=== PATIENT | female | born 1960 | race Caucasian/White ===

== ENCOUNTER 2018-09-10 00:53 | Outpatient (CLI) | payer OTHER, SELFPAY ==
--- NOTE | 2018-09-10 14:30 | DI.MAMMO_ITS ---
SYMPTOM/DIAGNOSIS: SCREENING, Z12.13 MAMMOGRAMS: Mammograms were interpreted according to the usual protocol including computer analysis with CAD system, tomosynthesis and C view imaging. Comparison is made with 2012 and 2015. The breasts are composed of heterogeneously dense fibroglandular tissue. Breast density, category C. A circumscribed nodule is again noted in the left breast in the upper outer quadrant which appears to have decreased in size. A previously noted area of nodularity in the lower inner quadrant of the left breast is no longer seen. There is a new area of spiculation posteriorly in the posterior left breast which is barely included on the MLO view and appears to be located medially. Spot compression views and ultrasound are requested for further evaluation. The right breast shows no suspicious calcifications or suspicious masses. IMPRESSION: Left breast, category 0. Right breast, category 1, negative. MQSA ASSESSMENT OF FINDINGS: Incomplete: Needs additional imaging evaluation. Category 0. Patient will receive a letter notifying them of these results. Bi-RADS category C. The breasts are heterogeneously dense, which may obscure small masses.
== END 2018-09-10 01:13 ==
DX: Z12.31 Encounter for screening mammogram for malignant neoplasm of breast (principal); R92.8 Other abnormal and inconclusive findings on diagnostic imaging of breast
CPT/HCPCS: 77063; 77067

== ENCOUNTER 2018-09-10 01:33 | Outpatient (CLI) | payer OTHER, SELFPAY ==
[2018-09-10 10:50] LABS: ALT 45 U/L (12-78); AST 22 U/L (15-37); Albumin 3.7 g/dL (3.4-5.0); Alkaline Phosphatase 96 U/L (46-116); Anion Gap 8.9 mmol/L (3-11); BUN 19 mg/dL (7-18); Bilirubin, Total 0.6 mg/dL (0.2-1.0); CO2 27.1 mmol/L (21.0-32.0); CREATININE 0.84 mg/dL (0.55-1.02); Calcium 9.4 mg/dL (8.5-10.1); Chloride 105 mmol/L (98-107); Cholesterol 225 mg/dL (50-200); Glucose 92 mg/dL (70-100); HDL Cholesterol 50 mg/dL (40-60); LDL CHOLESTEROL 154 mg/dL (<100); Potassium 4.2 mmol/L (3.5-5.1); Sodium 141 mmol/L (136-145); Total Protein 6.7 g/dL (6.4-8.2); Triglyceride 120 mg/dL (30-150)
== END 2018-09-10 01:53 ==
DX: Z00.00 Encounter for general adult medical examination without abnormal findings (principal); E03.9 Hypothyroidism, unspecified; F41.9 Anxiety disorder, unspecified; R53.83 Other fatigue; F32.9 Major depressive disorder, single episode, unspecified
CPT/HCPCS: 36415; 80053; 80061; 83721; 84443

== ENCOUNTER 2018-09-17 01:46 | Outpatient (CLI) | payer OTHER, SELFPAY ==
--- NOTE | 2018-09-17 10:10 | DI.COMBO_ITS ---
SYMPTOM/DIAGNOSIS: F/U MAMMO, NEW AREA OF SPICULATION LEFT BREAST ADDITIONAL VIEWS AND LEFT BREAST ULTRASOUND: Additional images are interpreted according to the usual protocol including tomosynthesis and 2D imaging. Additional views of the left breast again show a spiculated mass in the upper inner quadrant of the left breast. No associated microcalcifications are seen. This was not present on the prior examination. Left breast ultrasound was performed. A hypoechoic spiculated mass is seen at the 11 o'clock position of the left breast 7 cm. from the nipple. This appears to correspond to the mammographic abnormality. No other cystic or solid masses are seen sonographically. IMPRESSION: New, 8 mm. spiculated mass in the upper inner quadrant of the left breast highly suspicious for a malignancy. Biopsy is recommended. Category 5. MQSA ASSESSMENT OF FINDINGS: Highly suspicious of malignancy. Biopsy should be obtained. Category 5. Patient will receive a letter notifying them of these results. Bi-RADS category C. The breasts are heterogeneously dense, which may obscure small masses. The findings were discussed with the patient and the patient's primary care team on the date of the examination.
== END 2018-09-17 02:06 ==
DX: Z12.31 Encounter for screening mammogram for malignant neoplasm of breast (principal); R92.8 Other abnormal and inconclusive findings on diagnostic imaging of breast; N63.22 Unspecified lump in the left breast, upper inner quadrant
CPT/HCPCS: 76642; 77063; 77067

== ENCOUNTER 2018-10-02 12:44 | Outpatient (REF) | payer OTHER, SELFPAY ==
--- NOTE | 2018-10-02 09:15 | PAPFT_PTH ---
PATIENT: Loulou Ridley LOC: [facility] U#:[id number] AGE/SX: 58/F ROOM: RE10/02/[address]: Juju Sr APRN : 1960 BED: DIS: 10/02/2018 SPEC #: [id number] RECD: 10/03/18 13:09 STATUS: VIRI LYLES #: [id number] KEENAN: 10/02/18 09:[address]: Juju Sr DEPT: [facility] Cytology RECD BY: Yi Richardson Tissues: 1 - CX/ENDOCX FOR PAP SMEARS Procedures: PAP THIN PREP/UVM Screening HPV DNA PROBE Comments: [id number]
== END 2018-10-02 13:04 ==
LOC: LBN 12:44
DX: Z12.4 Encounter for screening for malignant neoplasm of cervix (principal); Z11.51 Encounter for screening for human papillomavirus (HPV)
CPT/HCPCS: 88142; 87624

== ENCOUNTER 2018-11-20 17:30 | Emergency (ER) | payer OTHER, SELFPAY ==
[2018-11-20 17:34] VITALS: BP 140/99; PULSE 112; RESP 16; TEMP 36.7; O2SAT 96
[2018-11-20 18:18] LABS: Abs Immature Grans 0.02 k/cumm (0.0-0.09); Absolute Basophil Count 0.01 k/cumm (0.0-0.2); Absolute Lymphocyte Count 1.66 k/cumm (1.2-3.4); Absolute Monocyte Count 0.86 k/cumm (0.11-0.7); Absolute Neutrophil Count 4.56 k/cumm (1.2-6.7); Basophils % 0.1; Eosinophils % 1.4; HCT 39.6 % (36.0-46.0); HGB 14.1 g/dL (12.0-15.5); Immature Grans % 0.3; Mean Corp. HGB Concentration 35.6 g/dL (32.0-36.0); Mean Corpuscular Hemoglobin 28.8 pg (27.0-33.0); Mean Platelet Volume 10.2 fL (8.0-11.0); Monocytes % 11.9; Neutrophils % 63.3; Platelet Count 202 x1000/uL (130-400); RBC 4.89 m/cumm (4.00-5.20); RBC Distribution Width 12.4 % (11.7-14.6); White Blood Cell Count 7.21 k/cumm (4.4-10.8)
[2018-11-20] MEDS: Normal Saline 1,000 ML 1000 ML IV ×2 (18:19→19:47)
[2018-11-20 18:29] LABS: ALT 60 U/L (12-78); AST 21 U/L (15-37); Albumin 3.4 g/dL (3.4-5.0); Alkaline Phosphatase 95 U/L (46-116); Anion Gap 8.8 mmol/L (3-11); BUN 12 mg/dL (7-18); Bilirubin, Total 0.4 mg/dL (0.2-1.0); CO2 27.2 mmol/L (21.0-32.0); CREATININE 0.87 mg/dL (0.55-1.02); Chloride 103 mmol/L (98-107); Glucose 107 mg/dL (70-100); Lipase 152 U/L (73-393); Potassium 3.2 mmol/L (3.5-5.1); Sodium 139 mmol/L (136-145)
[2018-11-20 18:33] LABS: Calcium 9.3 mg/dL (8.5-10.1)
[2018-11-20 19:45] VITALS: BP 132/82; PULSE 68; RESP 18; O2SAT 96
[2018-11-20] MEDS: POTASSIUM CHLORIDE 20 MEQ/100 ML BAG 100 MEQ IVPB (19:47)
--- NOTE | 2018-11-20 20:51 | ED.GENADUL_ITS ---
Discharge Plan Disposition Patient Disposition: HOME Condition: Good Discharge Details Chief Complaint: Nausea/Vomit/Diar Clinical Impression: C. difficile diarrhea Primary Care Provider: Juju Sr ED Provider: Wilder Lainez Home Meds and New Rx's Prescriptions: New vancomycin 125 mg capsule 125 mg PO QID 10 Days Qty: 40 RF: 0 metronidazole [Flagyl] 500 mg tablet 500 mg PO TID 10 Days Qty: 30 RF: 0 No Action levothyroxine 100 mcg tablet 100 mcg PO DAILY Qty: 90 RF: 3 estradiol [Yuvafem] 10 MCG tablet 10 mcg VG as directed Qty: 30 RF: 2 Hold Instructions: None clobetasol 0.05 % cream 1 applic TP QHS Qty: 45 RF: 1 ondansetron HCl [Zofran] 4 mg tablet 4 mg PO QID PRN (Reason: nausea and vomiting) Qty: 20 RF: 0 Discharge Instructions Instructions: Clostridium Difficile Infection (ED) Additional Instructions: You have C. difficile diarrhea. You have been given your first dose of vancomycin here. Please go to your pharmacy tomorrow morning and fill your vancomycin prescription. If they do not have any available please take the Flagyl instead. If you notice any worsening of your symptoms, or any new symptoms such as vomiting, worsening diarrhea, bloody diarrhea, fever, chills, shortness of breath, chest pain, numbness, nominal pain, weakness, or fainting , please return immediately to the emergency department for reevaluation. Please follow up with your primary care provider as soon as possible for reassessment and reevaluation. As always, it was a pleasure participating in your medical care today. Referrals: Juju Sr, [employer]LEMENT[employer]ER [Primary Care Provider] - Medical Decision Making This is a pleasant 58-year-old female who presents today for evaluation of nearly 2 weeks of watery diarrhea. Symptoms began after she had her breast surgery for breast cancer. She had a single dose of antibiotics at the time of surgery, but has not had any since then. Initially her diarrhea was dark for the first few days, but has since transitioned to a watery diffuse diarrhea. No recent foreign travel, no other sick contacts, no antibiotics since her surgery. He denies any abdominal pain or discomfort but does admit to mild crampiness. She has seen her primary care provider who did give her some Zofran for home use however this did not resolve her symptoms. She presents today for continued symptomatology. Exam demonstrates no evidence of abdominal tenderness or an acute surgical abdomen. Skin turgor is decreased, mucous membranes are slightly dry. We will rehydrate, formal laboratory work-up to evaluate for any significant electrolyte abnormality, and evaluate for any infectious etiology in the patient's stool. We did discuss imaging, patient would like to hold off for the time being after discussing the risks and benefits of CT scan. Patient's laboratory work-up has returned, she demonstrates no evidence of significant leukocytosis, bandemia, left shift, severe electrolyte abnormality, or renal dysfunction. Lipase is normal. Potassium is slightly low at 3.2. Patient has been rehydrated with 2 L of normal saline and given 20 mEq of IV c alcium. Patient's C. difficile has returned and it is positive. Feel this is most likely secondary to her antibiotic use for her surgery, followed by her inpatient admission. The C. difficile antigen is positive, but the toxin is negative, with no clinical signs of severe colitis and do not think the patient has fulminant C. difficile colitis. Do feel that her diarrhea is most likely secondary to the presence of C. difficile. We will get the first dose of vancomycin here, and 1 pill to go home with. We will give her a prescription for home use, as well as a prescription for Flagyl. We recommend that she attempts to get the oral vancomycin primarily, but if her pharmacies do not have any available that she can take the Flagyl instead as a second history alternative. Discussed the importance of close and prompt follow-up with her primary care provider, good handwashing techniques, and red flags which to return. Repeat exam continues to demonstrate a benign appearing abdomen on p alpation. Patient will be discharged home. I have extensively reviewed the treatment plan and discharge instructions with the patient and their family. I have addressed all patient concerns at this time. The patient and family was made aware of what symptoms to monitor for that would warrant a return to the emergency department. Discussed the plan with the patient and family, they demonstrate verbal understanding and agreement with our assessment and plan at this time. HPI General Date/Time Provider Initiated Documentation: 11/20/18 17:32 . HPI Narrative: This is a pleasant 58-year-old female with a past medical history of rest cancer with surgical excision on 4/29. Since then the patient has had continued diarrhea and loose stool that has been unremitting. She does admit to mild crampiness but denies any abdominal pain. Initially her stool was dark in color earlier this month over the last week and a half has transitioned into a diffusely water, yellow we stool with small amounts of food particles. She denies any hematochezia, melena, acholic stool. She denies any vomiting, abdominal pain, chest pain. He does admit to mild thyroid disease, but denies any other abnormalities or medical history. When she did have her breast cancer surgery she was given a single dose of antibiotics at time of surgery, but has not had any antibiotics since then. Patient denies any recent foreign travel, other sick contacts, or other abnormalities. He has not seen any GI specialist. She has no other complaints or modifying factors. Related Data Home Medications Medication Instructions Recorded Confirmed estradiol [Yuvafem] 10 mcg VG as directed #30 tab-cap 08/21/17 10/02/18 levothyroxine 100 mcg tablet 100 mcg PO DAILY #90 tab-cap 08/28/18 10/02/18 clobetasol 0.05 % topical cream 1 applic TP QHS #45 gm 10/02/18 10/18/18 ondansetron HCl 4 mg tablet 4 mg PO QID PRN #20 tab 11/14/18 metronidazole [Flagyl] 500 mg PO TID 10 Days #30 tab 11/20/18 vancomycin 125 mg PO QID 10 Days #40 cap 11/20/18 Previous Rx's Medication Instructions Recorded estradiol [Yuvafem] 10 mcg VG as directed #30 tab-cap 08/21/17 levothyroxine 100 mcg tablet 100 mcg PO DAILY #90 tab-cap 08/28/18 clobetasol 0.05 % topical cream 1 applic TP QHS #45 gm 10/02/18 ondansetron HCl 4 mg tablet 4 mg PO QID PRN #20 tab 11/14/18 metronidazole [Flagyl] 500 mg PO TID 10 Days #30 tab 11/20/18 vancomycin 125 mg PO QID 10 Days #40 cap 11/20/18 Allergies Allergy/AdvReac Type Severity Reaction Status Date / Time Animal Dander Allergy Unknown Uncoded 08/01/15 15:45 General Stated Complaint: Nausea/Vomit/Diar ANDREW: 3 Review of Systems Review of Systems All systems reviewed & are unremarkable except as noted in HPI and below PFSH Social History Smoking/Tobacco Use Status: Former Tobacco Use Quit Date: 07/09/84 Second Hand Exposure: No Alcohol Intake: current Alcohol Intake frequency: a few times a month Drug use: Never Caregiver/Support person: No Household members: spouse Housing: house Communication Needs: Corrective Lenses Do you need help understanding health information?: Never Pets and animals: No Sexually active: No Do you think of yourself as: straight/heterosexual Current gender identity: female What is your relationship status?: How often do you talk on the phone with friends or family?: three or more times per week How often do you get together with friends or relatives?: twice per week How often do you attend catholic or restorationism services?: decline to answer Do you belong to any clubs or organized social groups?: no Panel score (0-1 are the most socially isolated patients): 2 What type of physical activity do you participate in: none Charisma/Baptism: No preference Special charisma needs: No Do you feel safe at home: Yes Do you feel safe in your relationship?: Yes Exam Narrative Exam Narrative: 1.Const: Well-nourished, Well-developed, appearing stated age 2.Eyes: PERRL, no conjunctival injection, and symmetrical lids. 3.ENT: Atraumatic external nose and ears. Moist MM. Neck: Symmetric, trachea midline, No thyromegaly. 4.CVS: +S1/S2, No murmurs or gallops. Peripheral pulses 2+ and equal in all extremities. Brisk capillary refill in all extremities. 5.RESP: Unlabored respiratory effort. Clear to auscultation bilaterally. No wheezes rales or rhonchi 6.GI: Soft, Nontender/Nondistended, No hepatosplenomegaly. No guarding or rebound. No pain at McBurney's point, negative Verma sign, no evidence of an acute surgical abdomen. Rectal exam was performed with female nurse Alannah at bedside. Exam demonstrates no evidence of anal fissure, significant hemorrhoid or other abnormality. Rectal exam demonstrates no evidence of gross or enrique blood. 7.MSK: Normocephalic/Atraumatic, Extremities w/o deformity or ttp No cyanosis or clubbing, Normal movement of all extremities 8.Skin: Warm, Dry. No rashes or lesions. 9.Neuro: biology instructor II-XII grossly intact. Sensation grossly intact, no focal neurologic deficits. 10.Psych: (AAO) x3. Appropriate mood and affect Course Vital Signs Temperature 36.7 C 11/20/18 17:34 Pulse 112 H 11/20/18 17:34 Respiratory Rate 16 11/20/18 17:34 Blood Pressure 140/99 H 11/20/18 17:34 Pulse Oximetry 96 11/20/18 17:34 Temperature 36.7 C 11/20/18 17:34 Temperature Source Skin 11/20/18 17:34 Pulse 68 11/20/18 19:45 Respiratory Rate 18 11/20/18 19:45 Respiratory Effort 11/20/18 19:45 Blood Pressure 132/82 11/20/18 19:45 Blood Pressure Position Sitting 11/20/18 17:34 Pulse Oximetry 96 11/20/18 19:45 Oxygen Delivery Method Room Air 11/20/18 19:45 Oxygen Flow Rate 0 11/20/18 19:45 Pain Level 0 11/20/18 19:45 Lab/Test Results Lab/Test Results: 11/20/18 19:05 Stool Clostridioides difficile Screen - Final Laboratory Tests Range/Units 11/20/18 11/20/18 18:00 18:00 WBC (4.4-10.8) k/cumm 7.21 RBC (4.00-5.20) m/cumm 4.89 Hgb (12.0-15.5) g/dL 14.1 Hct (36.0-46.0) % 39.6 MCV (80-95) fL 81.0 MCH (27.0-33.0) pg 28.8 MCHC (32.0-36.0) g/dL 35.6 RDW (11.7-14.6) % 12.4 Plt Count (130-400) x1000/uL 202 MPV (8.0-11.0) fL 10.2 Immature Gran % 0.3 Neutrophils % 63.3 Lymphocytes % 23.0 Monocytes % 11.9 Eosinophils % 1.4 Basophils % 0.1 Absolute Neutrophils (1.2-6.7) k/cumm 4.56 Absolute Lymphocytes (1.2-3.4) k/cumm 1.66 Absolute Monocytes (0.11-0.7) k/cumm 0.86 H Absolute Eosinophils (0.0-0.7) k/cumm 0.10 Absolute Basophils (0.0-0.2) k/cumm 0.01 Sodium (136-145) mmol/L 139 Potassium (3.5-5.1) mmol/L 3.2 L Chloride (98-107) mmol/L 103 Carbon Dioxide (21.0-32.0) mmol/L 27.2 Anion Gap (3-11) mmol/L 8.8 BUN (7-18) mg/dL 12 Creatinine (0.55-1.02) mg/dL 0.87 Estimated GFR/1.73 m2 (mL/min/1.73m2) >= 60.00 Glucose (70-100) mg/dL 107 H Calcium (8.5-10.1) mg/dL 9.3 Total Bilirubin (0.2-1.0) mg/dL 0.4 AST (15-37) U/L 21 ALT (12-78) U/L 60 Alkaline Phosphatase (46-116) U/L 95 Total Protein (6.4-8.2) g/dL 7.0 Albumin (3.4-5.0) g/dL 3.4 Lipase (73-393) U/L 152
[2018-11-20 21:18] VITALS: BP 132/82; PULSE 68; RESP 18; O2SAT 96
[2018-11-21 23:28] LABS: Specimen Description Feces
[2018-11-22 08:27] LABS: Result Positive
== END 2018-11-20 21:17 | disposition home or self-care (01) ==
PROVIDERS: Emergency Provider Student in an Organized Health Care Education/Training Program
DX: A04.72 Enterocolitis due to Clostridium difficile, not specified as recurrent (principal); D49.3 Neoplasm of unspecified behavior of breast
CPT/HCPCS: 36415; 80053; 83690; 87329; 96361; 96365; 96366; 99284; 85025; 87324; 87798; J3480

== ENCOUNTER 2019-05-13 01:54 | Outpatient (CLI) | payer OTHER, SELFPAY ==
[2019-05-13 10:52] LABS: HCT 40.4 % (36.0-46.0); HGB 13.9 g/dL (12.0-15.5); Mean Corp. HGB Concentration 34.4 g/dL (32.0-36.0); Mean Corpuscular Hemoglobin 29.4 pg (27.0-33.0); Mean Corpuscular Volume 85.4 fL (80-95); Mean Platelet Volume 10.6 fL (8.0-11.0); Platelet Count 190 x1000/uL (130-400); RBC 4.73 m/cumm (4.00-5.20); RBC Distribution Width 12.4 % (11.7-14.6); White Blood Cell Count 5.01 k/cumm (4.4-10.8)
[2019-05-13 11:12] LABS: Calculated LDL 168 mg/dL; Cholesterol 248 mg/dL (50-200); HDL Cholesterol 54 mg/dL (40-60); TSH (W/Ref FT4) 1.45 uIU/mL (0.36-3.74); Triglyceride 133 mg/dL (30-150)
== END 2019-05-13 02:14 ==
DX: I10 Essential (primary) hypertension (principal); G47.00 Insomnia, unspecified; K62.5 Hemorrhage of anus and rectum
CPT/HCPCS: 36415; 80061; 85027; 84443

== ENCOUNTER 2019-06-17 07:26 | Day surgery (SDC) | payer OTHER, SELFPAY ==
[2019-06-17 07:30] VITALS: BP 113/74; PULSE 110; RESP 18; TEMP 36.5; O2SAT 95
--- NOTE | 2019-06-17 08:00 | COLE_ITS ---
DATE: JUNE 17, 2019 Preoperative Diagnosis: 1. Colon screening 2. Internal hemorrhoids Postoperative Diagnosis: 1. Normal colon 2. Internal hemorrhoids Operation: 1. Colonoscopy 2. Internal hemorrhoid banding and subsequent removal of band Anesthesia: General Surgeon: Shelley Yusuf M.D. Indications: This is a 59 year-old woman who presented for her first screening colonoscopy. She also has noted frequent, bright-red rectal bleeding from hemorrhoids. She has no family history of colon cancer. Procedure: She was placed in the left Ponce' position. Propofol was titrated to sedation. Digital rectal exam revealed no significant external hemorrhoids or masses. The scope was advanced to the cecum without difficulty. I was able to visualize about 50% of the cecum but could not fully access it despite abdominal pressure. The scope was slowly withdrawn with no abnormalities seen within the ascending, transverse, descending, sigmoid colon or rectum. Her prep was excellent. Retroflexed view showed average appearing internal hemorrhoids. Due to the patient's regular symptoms, I elected to proceed with banding as we had discussed preoperatively. The scope was removed and the Bandito device attached. The scope was inserted and retroflexed and suction applied to the internal hemorrhoids. The band was then deployed. Two bands were placed with good results. Air was suctioned free and the scope was withdrawn. The patient had significant perianal pain in recovery which did not improve with Toradol and rest. We therefore agreed to remove the bands. The patient was taken back to the Operating Room and placed into the left Ponce' position. Propofol was administered. The anoscope was inserted. The bands did not appear to be in an unusual position. The tenotomy scissors were used to snip the rubber bands with release of the tissue. There was no significant bleeding. The patient reported significant relieve in recovery. She will need a follow- up screening colonoscopy within ten years.
[2019-06-17] MEDS: Lactated Ringers 1,000 ML 80 ML IV (08:12)
--- NOTE | 2019-06-17 08:36 | W.PM.DSUDISC ---
Discharge Plan Disposition Patient Disposition: HOME Condition: Good Discharge Details Reason For Visit: Colonoscopy Attending Provider: Shelley Yusuf Primary Care Provider: Juju Sr Home Meds and New Rx's Prescriptions: Continued levothyroxine 100 mcg tablet 100 mcg PO DAILY Qty: 90 RF: 3 clobetasol 0.05 % cream 1 applic TP QHS Qty: 45 RF: 1 anastrozole 1 mg Tablet 1 mg PO DAILY RF: 0 Discharge Instructions Additional Instructions: Findings: Your colon was normal. Internal hemorrhoids were present and were banded. This will cause pressure which can be treated with ibuprofen or sitz baths. A small amount of bleeding is normal when the hemorrhoid tissue falls off in 2-5 days. Follow up: Plan for a screening colonoscopy in 10 years. Please call if you develop: fevers >101.5 Nausea or Vomiting Abdominal pain that is not transient DAY SURGERY UNIT POST COLONOSCOPY INSTRUCTIONS 1. Because there will be medication in your system for the next 24 hours, you may feel a little sleepy. Your coordination will be affected. Therefore: a. Do not drive or operate dangerous equipment for 24 hours. b. Do not drink alcohol beverages for 24 hours (not even beer). c. Plan to go home and rest for the day. 2. Generally there are no restrictions on your activity after a day or so has gone by, but you may feel a bit fatigued for a few days. 3 After you arrive home you may have a light meal and return to a normal diet as you can tolerate it without feeling sick to your stomach. 4. After surgery, you may feel pain or discomfort. This should be only transient, but if it persists please contact your doctor. 5. If there are any questions regarding the findings of your procedure, please feel free to contact your doctor. 6. If you are unable to contact your doctor with a problem, contact the hospital at [phone]. 7. Continue all your regular medications unless directed otherwise. I understand the above instructions and have no questions. Signature of Patient or Responsible Adult Escort Date/Time Name of Responsible Adult Escort Signature of Nurse Date/Time Activity:: Activity as Tolerated Diet:: As Tolerated Discharge Orders Discharge Orders: Discharge Order (Routine); Ordered 06/17/19 Ordered By: Shelley Yusuf DS: Diagnosis Discharge Diagnosis (1) Internal hemorrhoids: Status: Acute (2) Normal colonoscopy: Status: Acute
[2019-06-17] MEDS: Ketorolac 30 MG/ML VIAL IVP (09:46)
[2019-06-17 09:52] VITALS: BP 131/76; PULSE 88; RESP 22; TEMP 36.6; O2SAT 94
[2019-06-17 10:24] VITALS: BP 131/70; PULSE 84; RESP 22; TEMP 36.4; O2SAT 99
[2019-06-17 11:05] VITALS: BP 104/61; PULSE 75; RESP 16; TEMP 36.5; O2SAT 98
[2019-06-17 11:35] VITALS: BP 112/68; PULSE 80; RESP 16; TEMP 35.9; O2SAT 96
== END 2019-06-17 12:05 | disposition home or self-care (01) ==
PROVIDERS: Visit Provider Surgery
PROC: 0DJD8ZZ Inspection of Lower Intestinal Tract, Via Natural or Artificial Opening Endoscopic (ICD-10-PCS; CPT 45378; principal; 2019-06-17 09:00)
DX: Z12.11 Encounter for screening for malignant neoplasm of colon (principal); K64.8 Other hemorrhoids
CPT/HCPCS: 45398; J1885

== ENCOUNTER 2020-01-08 02:31 | Outpatient (CLI) | payer OTHER, SELFPAY ==
[2020-01-08 12:50] LABS: ALT 69 U/L (14-59); AST 36 U/L (15-37); Albumin 3.7 g/dL (3.4-5.0); Alkaline Phosphatase 97 U/L (46-116); Anion Gap 9.4 mmol/L (3-11); BUN 18 mg/dL (7-18); Bilirubin, Total 0.7 mg/dL (0.2-1.0); CO2 26.6 mmol/L (21.0-32.0); CREATININE 0.81 mg/dL (0.55-1.02); Calcium 9.5 mg/dL (8.5-10.1); Chloride 105 mmol/L (98-107); Glucose 97 mg/dL (74-106); Potassium 3.9 mmol/L (3.5-5.1); Sodium 141 mmol/L (136-145); TSH (W/Ref FT4) 0.29 uIU/mL (0.36-3.74); Total Protein 6.7 g/dL (6.4-8.2)
[2020-01-08 13:10] LABS: FREE T4 1.36 ng/dL (0.76-1.46)
== END 2020-01-08 02:51 ==
DX: D49.3 Neoplasm of unspecified behavior of breast (principal); E03.9 Hypothyroidism, unspecified; R41.840 Attention and concentration deficit; R63.8 Other symptoms and signs concerning food and fluid intake
CPT/HCPCS: 36415; 80053; 84439; 84443

== ENCOUNTER 2020-02-09 01:18 | Outpatient (CLI) | payer OTHER, SELFPAY ==
--- NOTE | 2020-02-09 07:30 | DI.MAMMO_ITS ---
EXAM: MG MAMMO SCREENING 60 MIN DUR CLINICAL HISTORY: breast cancer screening, personal h/o breast ca,z85.3 TECHNIQUE: Mammograms were interpreted according to the usual protocol including computer analysis w Mpayy CAD system, tomosynthesis and C-view imaging. COMPARISON: FINDINGS: The breasts are heterogeneously dense. A peripherally calcified stable mass is noted in the upper ou ter quadrant of the left breast unchanged from May 2019 and October 2018. A previously noted left breast mass seen posteriorly on the MLO view of September 2018 has been resected with a biopsy clip in [place]. This was reportedly breast carcinoma. No new mass or clumped microcalcification seen. Postsurgical scarring noted. IMPRESSION: No specific evidence of malignancy at this time. Routine screening examinations suggested at yearly intervals due to reported history of recently resected breast carcinoma. BI-RADS Category 2 - Benign Findings Breast Density - Category C - Heterogeneously dense
== END 2020-02-09 01:38 ==
DX: Z85.3 Personal history of malignant neoplasm of breast (principal); Z12.31 Encounter for screening mammogram for malignant neoplasm of breast; R92.2 Inconclusive mammogram; N63.21 Unspecified lump in the left breast, upper outer quadrant
CPT/HCPCS: 77063; 77067

== ENCOUNTER 2020-12-24 02:37 | Outpatient (CLI) | payer BC, SELFPAY ==
[2020-12-24 13:00] LABS: ALT 60 U/L (14-59); AST 28 U/L (15-37); Albumin 3.6 g/dL (3.4-5.0); Alkaline Phosphatase 112 U/L (46-116); Anion Gap 8.9 mmol/L (3-11); BUN 16 mg/dL (7-18); Bilirubin, Total 0.5 mg/dL (0.2-1.0); CO2 26.1 mmol/L (21.0-32.0); CREATININE 0.9 mg/dL (0.55-1.02); Calcium 9.3 mg/dL (8.5-10.1); Chloride 107 mmol/L (98-107); Glucose 87 mg/dL (74-106); Potassium 4.3 mmol/L (3.5-5.1); Sodium 142 mmol/L (136-145); TSH (W/Ref FT4) 1.68 uIU/mL (0.36-3.74); Total Protein 6.6 g/dL (6.4-8.2)
== END 2020-12-24 02:38 | disposition home or self-care (01) ==
DX: Z00.00 Encounter for general adult medical examination without abnormal findings (principal); E03.9 Hypothyroidism, unspecified
CPT/HCPCS: 36415; 80053; 84443

== ENCOUNTER 2022-02-06 04:12 | Outpatient (CLI) | payer MEDICAID, SELFPAY ==
[2022-02-06 12:59] LABS: ALT 34 U/L (14-59); AST 20 U/L (15-37); Albumin 3.6 g/dL (3.4-5.0); Alkaline Phosphatase 104 U/L (46-116); BUN 17 mg/dL (7-18); Bilirubin, Total 0.6 mg/dL (0.2-1.0); CREATININE 0.9 mg/dL (0.55-1.02); Calcium 9.4 mg/dL (8.5-10.1); Chloride 106 mmol/L (98-107); Glucose 89 mg/dL (74-106); Potassium 3.7 mmol/L (3.5-5.1); Sodium 140 mmol/L (136-145); TSH (W/Ref FT4) 1.87 uIU/mL (0.36-3.74); Total Protein 6.8 g/dL (6.4-8.2)
== END 2022-02-06 04:13 | disposition home or self-care (01) ==
LOC: LOS 04:12
DX: E03.9 Hypothyroidism, unspecified (principal); Z00.00 Encounter for general adult medical examination without abnormal findings
CPT/HCPCS: 36415; 80053; 84443

== ENCOUNTER 2022-06-26 13:01 | Outpatient (CLI) | payer MEDICAID, SELFPAY ==
--- NOTE | 2022-06-26 13:00 | RT.EKG_ITS ---
APPROVED REPORT Exam: Resting ECG Reason for Exam: tachychardia Patient Location: O HR:80 bpm ECG Measurements Heart Rate 80 AXIS CA 150 P 10 QRSd 90 QRS 7 QT 371 T 31 QTc 428 Conclusion Sinus rhythm...normal P axis, V-rate 50- 99 Borderline T abnormalities, anterior leads...T flat or neg, V2-V4
== END 2022-06-26 13:02 | disposition home or self-care (01) ==
LOC: DI.CM 13:03
PROVIDERS: PCP Nurse Practitioner Family; Visit Provider Nurse Practitioner Family
DX: R00.0 Tachycardia, unspecified (principal)
CPT/HCPCS: 93010

== ENCOUNTER 2023-06-11 09:07 | Outpatient (REF) | payer MEDICAID, SELFPAY ==
[2023-06-11 13:03] LABS: HCT 41.6 % (36.0-46.0); HGB 14.4 g/dL (11.2-15.7); MCH 28.6 pg (27.0-33.0); MCHC 34.6 % (32.0-36.0); MCV 83 fL (80-95); MPV 11.1 fL (8.0-11.0); Platelet Count 212 10^3/uL (130-400); RBC 5.04 10^6/uL (3.93-5.22); RDW 12.3 % (11.7-14.6); RDW-SD 37.2 fL; WBC 6.34 10^3/uL (4.4-10.8)
[2023-06-11 13:23] LABS: ALT 37 U/L (14-59); AST 22 U/L (15-37); Alkaline Phosphatase 108 U/L (46-116); Anion Gap 10.2 mmol/L (3-11); BUN 23 mg/dL (7-18); Bilirubin, Total 0.7 mg/dL (0.2-1.0); CO2 25.8 mmol/L (21.0-32.0); Calcium 9.7 mg/dL (8.5-10.1); Chloride 104 mmol/L (98-107); Estimated GFR 62.91 (mL/min/1.73m2); Glucose 102 mg/dL (74-106); Potassium 3.9 mmol/L (3.5-5.1); Sodium 140 mmol/L (136-145); Total Protein 7.2 g/dL (6.4-8.2)
== END 2023-06-11 09:08 | disposition home or self-care (01) ==
LOC: LBN 09:07
PROVIDERS: PCP Nurse Practitioner Family; Visit Provider Nurse Practitioner Family
DX: R10.2 Pelvic and perineal pain (principal); R30.0 Dysuria; N95.0 Postmenopausal bleeding; Z85.3 Personal history of malignant neoplasm of breast
CPT/HCPCS: 80053; 85027; 87086

== ENCOUNTER → 2023-06-12 01:25 | Outpatient (CLI) | payer MEDICAID, SELFPAY ==
--- NOTE | 2023-06-12 07:45 | DI.US_ITS ---
Exam(s) US PELVIS TRANSVAGINAL EXAM: US PELVIS TRANSVAGINAL CLINICAL HISTORY: vaginal POSTMENOPAUSAL bleeding,BREAST NEOPLASM,N95.0 TECHNIQUE: Transabdominal and transvaginal imaging was performed using standard protocol. COMPARISON: US PELVIS TRANSVAG from 09/17/2013 FINDINGS: A transvaginal exam is limited by patient discomfort. Transabdominal images are limited by lack of bladder distention. UTERUS: Anteverted. 5.3 x 2.9 x 3.2 cm Endometrium: 3 mm, not well seen. Myometrium: Unremarkable. Cervix: Unremarkable. OVARIES: Right: Cyst or mass: Not Seen Left: Cyst or mass: None. Not visualized transvaginally DOPPLER: Color: Symmetric and uniform flow to both ovaries. No hyperemia. CUL-DE-SAC: Free fluid: None. IMPRESSION: Limited exam. Normal size uterus and ovaries. No thickening of the endometrial stripe. DATA REPOSITORY:
== END ==
PROVIDERS: PCP Nurse Practitioner Family; Visit Provider Nurse Practitioner Family
DX: N95.0 Postmenopausal bleeding
CPT/HCPCS: 76830; 76856

== ENCOUNTER 2023-06-27 15:42 | Outpatient (REF) | payer MEDICAID, SELFPAY ==
[2023-06-27 21:05] LABS: CREATININE 0.9 mg/dL (0.55-1.02); Estimated GFR 71.39 (mL/min/1.73m2)
[2023-06-27 21:28] LABS: TSH (W/Ref FT4) 2.12 uIU/mL (0.36-3.74)
[2023-06-28 17:59] LABS: HIV-1/2 Ag & Ab Screen Negative (Negative); Hepatitis C Ab w Rflx HCV PCR Negative (Negative)
== END 2023-06-27 15:43 | disposition home or self-care (01) ==
LOC: LBN 15:42
PROVIDERS: PCP Nurse Practitioner Family; Visit Provider Urology
DX: Z11.4 Encounter for screening for human immunodeficiency virus [HIV] (principal); E03.9 Hypothyroidism, unspecified; Z11.59 Encounter for screening for other viral diseases; N36.8 Other specified disorders of urethra
CPT/HCPCS: 86803; 87389; 82565; 84443

== ENCOUNTER → 2023-06-28 02:34 | Outpatient (CLI) | payer MEDICAID, SELFPAY ==
--- NOTE | 2023-06-28 07:45 | DI.DEXA_ITS ---
Exam(s) XR DEXA BONE DENSITY W/WO ELVIRA EXAM: XR DEXA BONE DENSITY W/WO ELVIRA CLINICAL HISTORY: screening for osteoporosis IN POSTMENOPAUSAL WOMAN,Z78.0 TECHNIQUE: COMPARISON: No exams were available for comparison FINDINGS: Lateral Spine Image: Unremarkable. No compression deformities identified. Left hip: Total T-Score: -1.1 Total Z-Score: 0.1 T- and Z-scores: Findings are consistent with osteopenia. Lumbar Spine: Total T-Score: -2.6 Total Z-Score: -0.8 T- and Z-scores: Findings are consistent with osteoporosis. IMPRESSION: Osteoporosis in the lumbar spine.
== END ==
PROVIDERS: PCP Nurse Practitioner Family; Visit Provider Family Medicine
DX: Z78.0 Asymptomatic menopausal state (principal); Z13.820 Encounter for screening for osteoporosis; M81.0 Age-related osteoporosis without current pathological fracture
CPT/HCPCS: 77080

== ENCOUNTER → 2023-07-12 02:20 | Outpatient (CLI) | payer MEDICAID, SELFPAY ==
[2023-07-12] MEDS: Gadoterate meglumine 20 ML SYRINGE 17 ML IVP (13:00)
[2023-07-12] MEDS: Normal Saline Flush 10 ML SYR IVP (13:01)
--- NOTE | 2023-07-12 13:15 | DI.MRI_ITS ---
Exam(s) MR PELVIS WO/W EXAM: MR PELVIS WO/W CLINICAL HISTORY: evaluate midline anterior vaginal wall mass,abnl us,n36.8 TECHNIQUE: Multiplanar multisequence MRI of the pelvis was performed. CONTRAST MATERIAL: IV Contrast: 17 mL of Dotarem contrast administered. COMPARISON: US US PELVIS TRANSVAGINAL from 06/12/2023 FINDINGS: Uterus: The uterus has a normal appearance. No myometrial mass is identified to suggest a fibroid. The endometrial stripe is within normal limits. Vagina/cervix: Unremarkable. No evidence of a vaginal mass is seen. Ovaries: The right ovary measures 1.4 x 0.8 cm. (Series [id number], image 1). The left ovary measures 1. 8 x 0.5 cm (series [id number], image 2). Urinary bladder: Unremarkable. Bowel: There are few diverticula seen in the sigmoid colon. The visualized bowel is otherwise unrema rkable. Soft tissues: No evidence of a pelvic mass or adenopathy. Bone: Unremarkable. Enhancement: No suspicious abnormal enhancement is identified. IMPRESSION: No evidence of a vaginal or pelvic mass. DATA REPOSITORY:
== END ==
PROVIDERS: PCP Nurse Practitioner Family; Visit Provider Urology
DX: N36.8 Other specified disorders of urethra (principal)
CPT/HCPCS: 72197

== ENCOUNTER 2024-08-07 16:50 | Outpatient (REF) | payer MEDICARE, SELFPAY ==
--- NOTE | 2024-08-07 11:30 | PAPFT_PTH ---
PATIENT: Loulou Ridley LOC: [facility] U#:[id number] AGE/SX: 64/F ROOM: RE08/07/[address]: Quinn Gray DNP : 1960 BED: DIS: 08/07/2024 SPEC #: [id number] RECD: 08/07/24 17:41 STATUS: VIRI REQ #: [id number] KEENAN: 08/07/24 11:[address]: Quinn Zimmerman DEPT: [facility] Cytology RECD BY: Yi Richardson Tissues: 1 - CX/ENDOCX FOR PAP SMEARS Procedures: PAP THIN PREP/UVM Screening HPV DNA PROBE Comments: [id number] (HPV 16 & 18/45)
== END 2024-08-07 16:51 | disposition home or self-care (01) ==
LOC: LBN 16:50
PROVIDERS: PCP Nurse Practitioner Family; Visit Provider Nurse Practitioner Family
DX: Z11.51 Encounter for screening for human papillomavirus (HPV) (principal); Z01.419 Encounter for gynecological examination (general) (routine) without abnormal findings
CPT/HCPCS: 88142; 87624

== ENCOUNTER 2024-08-11 01:22 | Outpatient (CLI) | payer MEDICARE, SELFPAY ==
[2024-08-11 12:23] LABS: HCT 41.5 % (36.0-46.0); HGB 14.2 g/dL (11.2-15.7); MCH 29.1 pg (27.0-33.0); MCHC 34.2 % (32.0-36.0); MCV 85 fL (80-95); Platelet Count 210 10^3/uL (130-400); RBC 4.88 10^6/uL (3.93-5.22); RDW 12.4 % (11.7-14.6); RDW-SD 38.1 fL; WBC 6.64 10^3/uL (4.4-10.8)
[2024-08-11 12:46] LABS: ALT 35 U/L (14-59); AST 20 U/L (15-37); Albumin 3.5 g/dL (3.4-5.0); Alkaline Phosphatase 93 U/L (46-116); Anion Gap 7.8 mmol/L (3-11); BUN 19 mg/dL (7-18); Bilirubin, Total 0.57 mg/dL (0.2-1.0); CO2 28.2 mmol/L (21.0-32.0); Calcium 9.3 mg/dL (8.5-10.1); Calculated LDL 168 mg/dL (<100); Chloride 106 mmol/L (98-107); Cholesterol 248 mg/dL (<200); Estimated GFR 62.52 (mL/min/1.73m2); Glucose 100 mg/dL (74-106); HDL Cholesterol 54 mg/dL (40-60); Sodium 142 mmol/L (136-145); Triglyceride 131 mg/dL (<150)
[2024-08-11 13:14] LABS: Hemoglobin A1C 5.6 % (<5.7)
== END 2024-08-11 01:23 | disposition home or self-care (01) ==
LOC: LOS 01:22
PROVIDERS: PCP Nurse Practitioner Family; Visit Provider Nurse Practitioner Family
DX: E03.9 Hypothyroidism, unspecified (principal); Z13.220 Encounter for screening for lipoid disorders; R53.83 Other fatigue; R73.9 Hyperglycemia, unspecified
CPT/HCPCS: 36415; 80053; 80061; 85027; 83036